=== PATIENT | female | born 1930 | race Caucasian/White ===

== ENCOUNTER 2016-12-15 23:47 | Inpatient (IN) | payer MEDICARE, OTHER ==
[2016-12-15] MEDS ORDERED: DILTIAZEM 5 MG/ML 5 ML VIAL IVP STA (23:58)
[2016-12-15] MEDS ORDERED: ASPIRIN 81 MG CHEW PO STA (23:58)
[2016-12-15] MEDS ORDERED: DILTIAZEM 125 MG in SODIUM CHLORIDE 0.9% 100 ML IV ONE (23:58)
--- NOTE | 2016-12-16 00:01 | ED ---
Chest Pain HPI - General Chief Complaint: Chest Pain Stated Complaint: Chest Pain Time Seen by Provider: 12/15/16 23:56 Source: patient Mode of arrival: EMS Limitations: no limitations - Related Data Home Medications Medication Instructions Recorded Confirmed Memantine HCl [Namenda] 5 mg PO DAILY 04/10/15 12/16/16 Tiotropium 18 Mcg/Puff [Spiriva] 1 puff INHALATION RT-DAILY 04/10/15 12/16/16 amLODIPine BESYLATE [Norvasc] 5 mg PO DAILY 04/10/15 12/16/16 Acetaminophen Tab [Tylenol] 650 mg PO Q4H PRN 04/11/15 12/16/16 Bisacodyl [Dulcolax] 10 mg RECTAL Q24H PRN 04/11/15 12/16/16 Magnesium Hydroxide [Milk of 7,200 mg PO DAILY PRN 04/11/15 12/16/16 Magnesia Concentrate] metFORMIN HCL [Glucophage] 500 mg PO BID 04/11/15 12/16/16 Caldesene Powder 81-15%(Talc-Zinc 1 applic TOPICAL DAILY PRN 07/23/15 12/16/16 Oxide) Clotrimazole/Betamethasone Dip 1 applic TOPICAL BID 07/23/15 12/16/16 [Lotrisone Cream] Levothyroxine Sodium [Synthroid] 175 mcg PO DAILY 07/23/15 12/16/16 Omeprazole [PriLOSEC] 40 mg PO DAILY 07/23/15 12/16/16 Esomeprazole Magnesium [NexIUM] 40 mg PO DAILY 12/16/16 12/16/16 Fluticasone Nasal [place] [Flonase 50 mcg NASAL DAILY 12/16/16 12/16/16 Nasal [place]] Furosemide [Lasix] 80 mg PO BID@0900,1600 12/16/16 12/16/16 INSULIN LISPRO (HumaLOG) [HumaLOG] 5 units SQ ACHS 12/16/16 12/16/16 Insulin Glargine [Lantus] 10 units SQ DAILY 12/16/16 12/16/16 Ipratropium-Albuterol Nebulize 0.5 - 2.5 mg .ROUTE DIRECTED 12/16/16 12/16/16 [Duoneb 0.5 mg-3 mg/3 ml Soln] Ranitidine HCl [Zantac] 150 mg PO BID 12/16/16 12/16/16 Spironolactone 50 mg PO DAILY 12/16/16 12/16/16 Previous Rx's Medication Instructions Recorded Budesonide-Formot 160-4.5 Mcg 2 puff INHALATION RT-BID puff 04/13/15 [Symbicort 160-4.5 Mcg Inhaler] Nitroglycerin Sl Tabs [Nitrostat] 0.4 mg SUBLINGUAL Q5M PRN #0 tab 04/13/15 guaiFENesin [Mucinex] 1,200 mg PO Q12HR tablet.er 04/13/15 ALPRAZolam [Xanax] 0.25 mg PO Q6H PRN #28 tab 07/29/15 Aspirin 81 mg PO DAILY #0 07/29/15 Azithromycin [Zithromax] 500 mg PO DAILY #3 tab 07/29/15 INSULIN LISPRO (humaLOG) [humaLOG 0 unit SQ ACHS vial 07/29/15 (formulary)] Ipratropium Nebulized [Atrovent 0.5 mg INHALATION RT-Q2H PRN #0 07/29/15 Nebulized] nebu Ipratropium Nebulized [Atrovent 0.5 mg INHALATION RT-QID nebu 07/29/15 Nebulized] Levalbuterol Nebulized (Conc) 1.25 mg INHALATION RT-Q2H PRN #0 ml 07/29/15 [Xopenex Nebulized (Conc)] Levalbuterol Nebulized (Conc) 1.25 mg INHALATION RT-QID ml 07/29/15 [Xopenex Nebulized (Conc)] Potassium Chloride ER [K-Dur 10] 10 meq PO BID tab.er.prt 07/29/15 QUEtiapine [SEROquel] 25 mg PO HS tab 07/29/15 traMADol HCl [Ultram] 100 mg PO Q6HR PRN #28 tab 07/29/15 Allergies Allergy/AdvReac Type Severity Reaction Status Date / Time adhesive Allergy Rash/Hives Verified 12/15/16 23:49 methylprednisolone sodium Allergy Confusion Verified 12/15/16 23:49 succinate [From Solu-Medrol] prednisone Allergy Confusion Verified 12/15/16 23:49 Rmubgnr-Tki-Mpf Reductase Allergy Confusion Verified 12/15/16 23:49 Inhibitor Review of Systems ROS Statement: Those systems with pertinent positive or pertinent negative responses have been documented in the HPI. ROS Other: All systems not noted in ROS Statement are negative. EKG Findings - EKG Comments: EKG Findings:: The 12-lead ECG shows what appears to be atrial fibrillation with a rapid ventricular response at 126 beats per minutes. The last EKG from July 2015 was in sinus rhythm. There is to be left axis deviation. There is nonspecific ST and T wave abnormality. The QRS duration is 88 ms, normal the QT see is 431 ms, also normal. - EKG Results: EKG: interpreted by ERMD EKG shows: atrial fibrillation (Rate approximately 126 bpm) - Blocks, Combs, Hypertrophy, ST Abn: QRS axis and voltage: left axis deviation (-30 to -90) Repolarization changes or abnormalities: nonspecific abnormality, ST segment, and/or T wave Past Medical History Past Medical History: Coronary Artery Disease (CAD), Heart Failure, COPD, Diabetes Mellitus, Deep Vein Thrombosis (DVT), GERD/Reflux, Hyperlipidemia, Hypertension, Osteoarthritis (OA), Pneumonia, Rheumatoid Arthritis (RA), Thyroid Disorder Additional Past Medical History / Comment(s): Pt was recently admitted to [facility] with acute low grade encephalitis likely viral, acute delirium, acute metabolic encephalitis. History of Any Multi-Drug Resistant Organisms: None Reported Past Surgical History: Appendectomy, Back Surgery, Joint Replacement, Orthopedic Surgery, Tonsillectomy Additional Past Surgical History / Comment(s): KNEE REPLACEMENT-LEFT, DENIA CATARACT, bilateral FOOT SURGERY, D&C, BRONCHOSCOPY, EVACUATION OF HEMATOMA RT FOOT 01/01/14, 3 back surgeries. Past Anesthesia/Blood Transfusion Reactions: No Reported Reaction, Postoperative Nausea & Vomiting (PONV) Additional Past Anesthesia/Blood Transfusion Reaction / Comment(s): Pt states she recieved blood with a back surgery without reaction. Past Psychological History: No Psychological Hx Reported Smoking Status: Former smoker Past Alcohol Use History: None Reported Past Drug Use History: None Reported - Past Family History Mother Family Medical History: Diabetes Mellitus, Myocardial Infarction ([place]) Father Family Medical History: Diabetes Mellitus General Exam Limitations: no limitations Course Vital Signs 12/15/16 12/15/16 12/16/16 23:49 23:54 00:30 Temperature 97.7 F Pulse Rate 141 H 125 H 114 H Pulse Rate [ 128 H Bezel Cutter ] Respiratory 20 20 20 Rate Blood Pressure 134/74 186/82 O2 Sat by Pulse 99 99 96 Oximetry 12/16/16 12/16/16 12/16/16 01:07 01:35 02:13 Temperature 98.2 F Pulse Rate 111 H 100 79 Pulse Rate [ Bezel Cutter ] Respiratory 18 24 20 Rate Blood Pressure 96/66 90/66 114/74 O2 Sat by Pulse 96 100 99 Oximetry 12/16/16 02:39 Temperature 98.1 F Pulse Rate 88 Pulse Rate [ Bezel Cutter ] Respiratory 18 Rate Blood Pressure 97/62 O2 Sat by Pulse 97 Oximetry Disposition Clinical Impression: Chest pain, Atrial fibrillation with RVR Disposition: ADMITTED IP TO THIS HOSP Condition: Poor Referrals: Binh Jackson MD [Primary Care Provider] - 1-2 days
[2016-12-16 00:26] LABS: Partial Thromboplastin Time 30.5 sec (22.0-30.0)
[2016-12-16] MEDS ORDERED: ONDANSETRON 4 MG/2 ML VIAL IVP STA (00:26)
[2016-12-16 00:28] LABS: Calcium 9.6 mg/dL (8.4-10.2); Magnesium 2.2 mg/dL (1.6-2.3); Potassium 5.5 mmol/L (3.5-5.1); Total Bilirubin 0.6 mg/dL (0.2-1.3); Total Protein 6.5 g/dL (6.3-8.2)
[2016-12-16 00:35] LABS: Anisocytosis Slight; Basophils % (A) 0 %; CH 28.9; CHCM 34.3; Eosinophils # (A) 0.1 k/uL (0-0.7); Eosinophils % (A) 1 %; HCT 38.1 % (34.0-46.0); HDW 2.98; HGB 13.1 gm/dL (11.4-16.0); Luc # (Auto) 0.18; Luc % (Auto) 2; Lymphocytes # (A) 0.9 k/uL (1.0-4.8); Lymphocytes % (A) 8 %; MCH 28.9 pg (25.0-35.0); MCHC 34.3 g/dL (31.0-37.0); Mean Platelet Volume 7.1; Monocytes # (A) 0.6 k/uL (0-1.0); Monocytes % (A) 6 %; Neutrophils # (A) 9.9 k/uL (1.3-7.7); Neutrophils % (A) 84 %; RBC 4.52 m/uL (3.80-5.40); RDW 17.3 % (11.5-15.5); WBC 11.7 k/uL (3.8-10.6); WBC (Perox) 12.02
[2016-12-16 00:37] LABS: MCV 84.3 fL (80.0-100.0)
--- NOTE | 2016-12-16 01:24 | XR ---
EXAM: XR Chest, 1 View CLINICAL HISTORY: Reason: chest pain TECHNIQUE: Frontal view of the chest. COMPARISON: Chest x-ray dated 08/05/2015. FINDINGS: Lungs: The heart is again noted to be enlarged, interval worsening since prior study. Bilateral perihilar infiltrates are noted, interval worsening since the prior study. Constellation of findings are suggestive of CHF. Pleural space: Small amount of fluid is seen within the minor fissure. No definitive evidence of significant pleural effusions. No pneumothorax. Heart: Cardiomegaly, interval worsening since prior study. Bones/joints: Osteopenia suggested. Degenerative changes involving both shoulders.. Vasculature: Atherosclerotic vascular calcifications involving the aorta. A mild/moderately tortuous descending thoracic aorta is seen. IMPRESSION: Interval worsening of CHF, as above.
[2016-12-16] MEDS ORDERED: SODIUM CHLORIDE 0.9% 1,000 ML IV STA (01:39)
[2016-12-16] MEDS ORDERED: NITROGLYCERIN SL TABS 0.4 MG TAB SUBLINGUAL PRN ×2 (02:42→02:45)
[2016-12-16] MEDS ORDERED: BISACODYL 10 MG SUPP RECTAL PRN (02:45)
[2016-12-16] MEDS ORDERED: MAGNESIUM HYDROXIDE 2,400 MG/10 ML CUP PO PRN (02:45)
[2016-12-16] MEDS ORDERED: traMADol 50 MG TAB PO PRN (02:45)
[2016-12-16] MEDS ORDERED: ALPRAZolam 0.25 MG TAB PO PRN (02:45)
[2016-12-16] MEDS ORDERED: ACETAMINOPHEN TAB 325 MG TAB PO PRN (02:45)
[2016-12-16] MEDS ORDERED: CALDESENE TOPICAL PRN (02:45)
[2016-12-16 04:31] LABS: Glucose,Whole Blood 123 mg/dL (75-99)
[2016-12-16] MEDS ORDERED: LEVOTHYROXINE 75 MCG TAB PO SCH (06:30)
[2016-12-16] MEDS ORDERED: LEVOTHYROXINE 100 MCG TAB PO SCH (06:30)
[2016-12-16] MEDS: metFORMIN 500 MG TAB PO SCH ×2 (07:09→17:08)
[2016-12-16] MEDS ORDERED: PANTOPRAZOLE 40 MG TABLET PO SCH (07:30)
[2016-12-16 07:56] LABS: Creatine Kinase <20 U/L (30-135)
[2016-12-16] MEDS ORDERED: TIOTROPIUM 18 MCG/PUFF INHALER INHALATION SCH (08:00)
[2016-12-16 08:08] LABS: Creatine Kinase MB 0.5 ng/mL (0.0-2.4); Troponin I <0.012 ng/mL (0.000-0.034)
[2016-12-16] MEDS: INSULIN LISPRO (humaLOG) 300 UNIT/3 ML VIAL SQ SCH ×4 (08:25→21:22)
[2016-12-16] MEDS: FAMOTIDINE 20 MG TAB PO SCH ×2 (08:36→22:11)
[2016-12-16] MEDS: CLOTRIMAZOLE/BETAMETH 1-0.05% CREAM 45 GM TUBE TOPICAL SCH ×3 (08:37→22:13)
[2016-12-16] MEDS: SYMBICORT 160-4.5 MCG INHALER INHALATION SCH ×2 (08:50→19:45)
[2016-12-16] MEDS: IPRATROPIUM 0.5 MG/2.5 ML NEBU INHALATION SCH ×4 (08:50→19:45)
[2016-12-16] MEDS: LEVALBUTEROL NEB (CONC) 1.25 MG/0.5 ML AMP INHALATION SCH ×4 (08:50→19:45)
[2016-12-16] MEDS ORDERED: HEPARIN SODIUM,PORCINE 5,000 UNIT/ML 1 ML VIAL SQ SCH (09:00)
[2016-12-16] MEDS ORDERED: amLODIPine 5 MG TAB PO SCH (09:00)
[2016-12-16] MEDS ORDERED: MEMANTINE 5 MG TAB PO SCH (09:00)
[2016-12-16] MEDS ORDERED: POTASSIUM CHLORIDE ER 10 MEQ TAB.ER.PRT PO SCH (09:00)
[2016-12-16] MEDS ORDERED: ASPIRIN 81 MG CHEW PO SCH (09:00)
[2016-12-16] MEDS ORDERED: NON-FORMULARY DRUG (Omeprazole [Prilosec] 40 MG) PO SCH (09:00)
[2016-12-16] MEDS ORDERED: AZITHROMYCIN 500 MG TAB PO SCH (09:00)
[2016-12-16] MEDS ORDERED: INSULIN GLARGINE 100 UNIT/ML 10 ML VIAL SQ SCH (09:00)
[2016-12-16] MEDS ORDERED: SPIRONOLACTONE 25 MG TAB PO SCH (09:00)
[2016-12-16] MEDS ORDERED: METOPROLOL TARTRATE 50 MG TAB PO SCH (10:45)
[2016-12-16] MEDS ORDERED: APIXABAN 2.5 MG TABLET PO SCH (10:45)
[2016-12-16 11:33] LABS: Glucose,Whole Blood 129 mg/dL (75-99)
[2016-12-16] MEDS: SODIUM CHLORIDE 0.9% 1,000 ML IV SCH ×2 (11:39→22:17)
[2016-12-16] MEDS ORDERED: QUEtiapine 25 MG TAB PO PRN (12:02)
[2016-12-16] MEDS ORDERED: guaiFENesin 600 MG TABLET.ER PO PRN (12:02)
--- NOTE | 2016-12-16 12:02 | P.HPIM ---
History of Present Illness H&P Date: 12/16/16 Chief Complaint: Right-sided chest pain This is a Pleasant 86-year-old white female, well-known to me from [facility] and previous hospital stays. She is a "DO NOT RESUSCITATE, do not hospitalize" patient from the skilled nursing. I was contacted multiple times regarding right-sided chest pain. She did receive several doses of TRAM, Xanax , and nitroglycerin that did not her pain. I asked them to Center emergency room for evaluation his pain. I was contacted later on indicating that she had some A. fib with RVR. Known history of congestive heart failure, diastolic dysfunction, and had episodic A. fib in the remote past. She was not on any blood thinners. They understand they started Cardizem drip to control her heart rate emergency room. She is now on the telemetry floor. This Morning, she indicates she had pain at the midepigastrium. It is resolved Review of Systems All systems: negative Past Medical History Past Medical History: Coronary Artery Disease (CAD), Heart Failure, COPD, Dementia (delerium with violent outbursts), Diabetes Mellitus, Deep Vein Thrombosis (DVT), GERD/Reflux, Hyperlipidemia, Hypertension, Memory Impairment ( demenia), Osteoarthritis (OA), Pneumonia, Respiratory Disorder (puolmonary Fibrosis or a fibrosis), Rheumatoid Arthritis (RA), Thyroid Disorder History of Any Multi-Drug Resistant Organisms: None Reported Past Surgical History: Appendectomy, Back Surgery, Joint Replacement, Orthopedic Surgery, Tonsillectomy Additional Past Surgical History / Comment(s): KNEE REPLACEMENT-LEFT, DENIA CATARACT, bilateral FOOT SURGERY, D&C, BRONCHOSCOPY, EVACUATION OF HEMATOMA RT FOOT 01/01/14, 3 back surgeries. Past Anesthesia/Blood Transfusion Reactions: No Reported Reaction, Postoperative Nausea & Vomiting (PONV) Additional Past Anesthesia/Blood Transfusion Reaction / Comment(s): Pt states she recieved blood with a back surgery without reaction. Past Psychological History: No Psychological Hx Reported Additional Psychological History / Comment(s): Pt resides at [facility]. She is assisted to a wheelchair. She feeds herself. She needs assistance with all other ADLs. She has dementia and occasionally confused. She has weakness and gait dysfunction. Smoking Status: Never smoker - Past Family History Mother Family Medical History: Diabetes Mellitus, Myocardial Infarction ([place]) Father Family Medical History: Diabetes Mellitus Medications and Allergies Home Medications Medication Instructions Recorded Confirmed Type Memantine HCl [Namenda] 5 mg PO DAILY 04/10/15 12/16/16 History Tiotropium 18 Mcg/Puff [Spiriva] 1 puff INHALATION RT-DAILY 04/10/15 12/16/16 History amLODIPine BESYLATE [Norvasc] 5 mg PO DAILY 04/10/15 12/16/16 History Acetaminophen Tab [Tylenol] 650 mg PO Q4H PRN 04/11/15 12/16/16 History Bisacodyl [Dulcolax] 10 mg RECTAL Q24H PRN 04/11/15 12/16/16 History Magnesium Hydroxide [Milk of 2,400 mg PO DAILY PRN 04/11/15 12/16/16 History Magnesia Concentrate] metFORMIN HCL [Glucophage] 500 mg PO BID 04/11/15 12/16/16 History Caldesene Powder 81-15%(Talc-Zinc 1 applic TOPICAL DAILY PRN 07/23/15 12/16/16 History Oxide) Clotrimazole/Betamethasone Dip 1 applic TOPICAL BID 07/23/15 12/16/16 History [Lotrisone Cream] Aspirin 81 mg PO DAILY 12/16/16 12/16/16 History Esomeprazole Magnesium [NexIUM] 40 mg PO DAILY 12/16/16 12/16/16 History Fluticasone Nasal [place] [Flonase 1 - 2 spray EA NOSTRIL DAILY PRN 12/16/1612/16 History Nasal [place]] Furosemide [Lasix] 80 mg PO DAILY 12/16/16 12/16/16 History INSULIN LISPRO (humaLOG) [humaLOG See Protocol SQ ACHS 12/16/16 12/16/16 History (formulary)] Insulin Glargine [Lantus] 10 units SQ DAILY 12/16/16 12/16/16 History Ipratropium-Albuterol Nebulize 3 ml INHALATION RT-Q4H PRN 12/16/16 12/16/16 History [Duoneb 0.5 mg-3 mg/3 ml Soln] Ketoconazole 2% Shampoo [Nizoral] 1 applic TOPICAL WEEKLY 12/16/16 12/16/16 History Levothyroxine Sodium [Synthroid] 175 mcg PO DAILY 12/16/16 12/16/16 History QUEtiapine [SEROquel] 12.5 - 25 mg PO HS PRN 12/16/16 12/16/16 History Ranitidine HCl [Zantac] 150 mg PO BID 12/16/16 12/16/16 History Spironolactone 50 mg PO DAILY 12/16/16 12/16/16 History guaiFENesin [Mucinex] 1,200 mg PO Q12HR PRN 12/16/16 12/16/16 History traMADol HCL [Ultram] 50 mg PO Q4HR PRN 12/16/16 12/16/16 History Allergies Allergy/AdvReac Type Severity Reaction Status Date / Time adhesive Allergy Rash/Hives Verified 12/16/16 08:38 methylprednisolone sodium Allergy Confusion Verified 12/16/16 08:38 succinate [From Solu-Medrol] prednisone Allergy Confusion Verified 12/16/16 08:38 Cxvlkdx-Xlo-Mhs Reductase Allergy Confusion Verified 12/16/16 08:38 Inhibitor Physical Exam Vitals: Vital Signs Temp Pulse Pulse Pulse Resp BP BP 12/16/16 11:24 97.7 F 84 20 85/49 12/16/16 08:00 96.0 F L 76 20 115/61 12/16/16 07:27 66 18 12/16/16 04:00 98.3 F 66 18 99/72 12/16/16 03:37 79 20 99/57 12/16/16 02:39 98.1 F 88 18 97/62 12/16/16 02:13 79 20 114/74 12/16/16 01:35 100 24 90/66 12/16/16 01:07 98.2 F 111 H 18 96/66 12/16/16 00:30 114 H 20 186/82 12/15/16 23:54 125 H 128 H 20 12/15/16 23:49 97.7 F 141 H 20 134/74 Pulse Ox 12/16/16 11:24 99 12/16/16 08:00 94 L 12/16/16 07:27 12/16/16 04:00 100 12/16/16 03:37 100 12/16/16 02:39 97 12/16/16 02:13 99 12/16/16 01:35 100 12/16/16 01:07 96 12/16/16 00:30 96 12/15/16 23:54 99 12/15/16 23:49 99 Intake and Output 12/15/16 12/16/16 12/16/16 22:59 06:59 14:59 Intake Total 100 120 Balance 100 120 Intake: IV 100 0.9 80 Diltiazem 125 mg In 20 Sodium Chloride 0.9% 100 ml @ 5 MG/HR 5 mls/hr IV .Q24H ONE Rx#:[id number] Oral 120 Other: Voiding Method Diaper Incontinent # Voids 1 Weight 88.5 kg GENERAL: Elderly, frail, profoundly deaf, pleasant female HEAD: Atraumatic, normocephalic. EYES: Pupils equal round and reactive to light, extraocular movements intact, sclera anicteric, conjunctiva are normal. ENT:nares patent, oropharynx clear without exudates. Moist mucous membranes. NECK: Normal range of motion, supple without lymphadenopathy or JVD, no thyromegaly LUNGS: Breath sounds coarse with bilateral rhonchi due to her fibrosis, there is mild right basilar crackles auscultated today. HEART: Regular rate and rhythm without murmurs, rubs or gallops.S1S2 Normal ABDOMEN: Soft, normoactive bowel sounds. No guarding, no rebound. No masses appreciated. His midepigastric tenderness to palpation EXTREMITIES: Normal range of motion, no pitting, minimal edema. No clubbing or cyanosis. NEUROLOGICAL: Cranial nerves II through XII grossly intact. Normal speech, PSYCH: Normal mood, normal affect. No active hallucinations. Awake alert and oriented 2 SKIN: Warm, Dry, normal turgor, no rashes or lesions noted. Results CBC & Chem 7: 12/16/16 00:01 12/16/16 00:01 Labs: Abnormal Lab Results - Last 24 Hours (Table) 12/16/16 12/16/16 12/16/16 Range/Units 00:01 00:01 00:01 WBC 11.7 H (3.8-10.6) k/uL RDW 17.3 H (11.5-15.5) % Neutrophils # 9.9 H (1.3-7.7) k/uL Lymphocytes # 0.9 L (1.0-4.8) k/uL APTT 30.5 H (22.0-30.0) sec Sodium 127 L (137-145) mmol/L Potassium 5.5 H (3.5-5.1) mmol/L Chloride 90 L (98-107) mmol/L BUN 48 H (7-17) mg/dL Creatinine 1.20 H (0.52-1.04) mg/dL Glucose 168 H (74-99) mg/dL POC Glucose (mg/dL) (75-99) mg/dL AST 13 L (14-36) U/L Total Creatine Kinase (30-135) U/L 12/16/16 12/16/16 12/16/16 Range/Units 04:12 05:50 11:31 WBC (3.8-10.6) k/uL RDW (11.5-15.5) % Neutrophils # (1.3-7.7) k/uL Lymphocytes # (1.0-4.8) k/uL APTT (22.0-30.0) sec Sodium (137-145) mmol/L Potassium (3.5-5.1) mmol/L Chloride (98-107) mmol/L BUN (7-17) mg/dL Creatinine (0.52-1.04) mg/dL Glucose (74-99) mg/dL POC Glucose (mg/dL) 123 H 129 H (75-99) mg/dL AST (14-36) U/L Total Creatine Kinase <20 L (30-135) U/L Thrombosis Risk Factor Assmnt - Choose All That Apply Each Risk Factor Represents 3 Points: Age 75 years or older, History of DVT/PE Thrombosis Risk Factor Assessment Total Risk Factor Score: 6 Thrombosis Risk Factor Assessment Level: High Risk Assessment and Plan Plan: AFIB With RVR: Due to her hypotension, we'll discontinue the heparin drip. I recall a previous history of this, but cannot find it documented in the hospital record, it may have happened while she was at [facility]. COPD: l, DuoNeb updrafts, Symbicort, and continue her Lasix. Pulmonary fibrosis acute exacerbation of diastolic this heart failure: Lasix 40 mg IV times one then return orals Type 2 diabetes: NovoLog scale. Lantus until her diet improved Hypothyroidism: She'll remain on Synthroid Dementia: She'll continue on her Namenda. Episodic delirium: Karl well Hypertension: She'll continue on her medications of amlodipine. Osteoarthritis: We'll order when necessary Tylenol for her. DVT prophylaxis: Currently on Elequis 2.5 twice a day GI prophylaxis: Pepcid 20 mg twice a day. Hyperkalemia: We'll recheck her potassium. Hyponatremia: Weight on her recheck a BMP Due to her CODE STATUS and my knowledge of the the patient, I will plan on her being back to [facility] later today or tomorrow.
[2016-12-16] MEDS ORDERED: FUROSEMIDE 80 MG TAB PO SCH (12:15)
[2016-12-16] MEDS ORDERED: NON-FORMULARY DRUG (Levothyroxine Sodium [Synthroid] 175 MCG) PO SCH (12:15)
[2016-12-16 12:22] LABS: Anisocytosis Slight; Basophils % (A) 0 %; CH 28.5; CHCM 32.8; Eosinophils # (A) 0.1 k/uL (0-0.7); Eosinophils % (A) 2 %; HCT 35.3 % (34.0-46.0); HDW 2.92; HGB 11.8 gm/dL (11.4-16.0); Luc # (Auto) 0.15; Luc % (Auto) 2; Lymphocytes # (A) 1.2 k/uL (1.0-4.8); Lymphocytes % (A) 15 %; MCH 29.1 pg (25.0-35.0); MCHC 33.4 g/dL (31.0-37.0); MCV 87.2 fL (80.0-100.0); Mean Platelet Volume 7.7; Monocytes # (A) 0.4 k/uL (0-1.0); Monocytes % (A) 5 %; Neutrophils # (A) 6.3 k/uL (1.3-7.7); Neutrophils % (A) 76 %; RBC 4.04 m/uL (3.80-5.40); RDW 17.3 % (11.5-15.5); WBC 8.3 k/uL (3.8-10.6); WBC (Perox) 8.41
[2016-12-16 12:42] LABS: Creatine Kinase <20 U/L (30-135)
[2016-12-16 12:54] LABS: Creatine Kinase MB 0.5 ng/mL (0.0-2.4); Troponin I <0.012 ng/mL (0.000-0.034)
[2016-12-16 14:10] LABS: Calcium 8.9 mg/dL (8.4-10.2); Potassium 5.8 mmol/L (3.5-5.1)
[2016-12-16 14:35] VITALS: RESP 18
[2016-12-16] MEDS ORDERED: SODIUM POLYSTYRENE SULFONATE 15 GM/60 ML BOTTLE PO STA (15:47)
[2016-12-16 16:55] LABS: Glucose,Whole Blood 129 mg/dL (75-99)
[2016-12-16 20:35] LABS: Glucose,Whole Blood 140 mg/dL (75-99)
[2016-12-16] MEDS ORDERED: QUEtiapine 25 MG TAB PO SCH (21:00)
[2016-12-16 22:09] VITALS: TEMP 98.4
[2016-12-16 22:30] VITALS: BP 108/62; PULSE 110
== END 2016-12-16 22:38 | DRG 309 ==
LOC: EEVIPCON 23:47 → EC 23:47 → 6SEL 12-16 02:43
PROVIDERS: ADMIT Family Medicine; ATTEND Family Medicine
DX: I48.91 Unspecified atrial fibrillation (principal); F05 Delirium due to known physiological condition; I11.0 Hypertensive heart disease with heart failure; I95.9 Hypotension, unspecified; F03.90 Unspecified dementia, unspecified severity, without behavioral disturbance, psychotic disturbance, mood disturbance, and anxiety; I50.32 Chronic diastolic (congestive) heart failure; E87.1 Hypo-osmolality and hyponatremia; J84.10 Pulmonary fibrosis, unspecified; E87.5 Hyperkalemia; J44.9 Chronic obstructive pulmonary disease, unspecified; Z66 Do not resuscitate; I25.10 Atherosclerotic heart disease of native coronary artery without angina pectoris; E78.5 Hyperlipidemia, unspecified; R07.9 Chest pain, unspecified; R53.1 Weakness; E11.9 Type 2 diabetes mellitus without complications; R26.9 Unspecified abnormalities of gait and mobility; M19.90 Unspecified osteoarthritis, unspecified site; M06.9 Rheumatoid arthritis, unspecified; R32 Unspecified urinary incontinence; E03.9 Hypothyroidism, unspecified; K21.9 Gastro-esophageal reflux disease without esophagitis; H91.90 Unspecified hearing loss, unspecified ear; R10.13 Epigastric pain; Z79.82 Long term (current) use of aspirin; Z79.51 Long term (current) use of inhaled steroids; Z87.891 Personal history of nicotine dependence; Z79.899 Other long term (current) drug therapy; Z83.3 Family history of diabetes mellitus; Z82.49 Family history of ischemic heart disease and other diseases of the circulatory system; Z86.61 Personal history of infections of the central nervous system; Z79.4 Long term (current) use of insulin; Z87.01 Personal history of pneumonia (recurrent); Z86.718 Personal history of other venous thrombosis and embolism; Z88.8 Allergy status to other drugs, medicaments and biological substances; Z91.048 Other nonmedicinal substance allergy status; Z90.49 Acquired absence of other specified parts of digestive tract; Z98.42 Cataract extraction status, left eye; Z98.41 Cataract extraction status, right eye; Z96.652 Presence of left artificial knee joint
CPT/HCPCS: 36415; 71010; 80048; 80053; 82550; 82553; 83735; 83880; 84132; 84484; 85025; 85610; 85730; 93005; 94640; 96374; 96375; 99285

== ENCOUNTER 2017-01-17 03:46 | Emergency (ER) | payer BC, OTHER ==
[2017-01-17 04:00] VITALS: TEMP 96.8
[2017-01-17] MEDS ORDERED: ONDANSETRON 4 MG/2 ML VIAL IVP STA ×2 (04:06→07:23)
[2017-01-17] MEDS ORDERED: MORPHINE SULFATE 4 MG/ML SYRINGE IV STA (04:06)
[2017-01-17 04:20] LABS: Anisocytosis Slight; Basophils # (A) 0.1 k/uL (0-0.2); Basophils % (A) 1 %; CH 30.4; CHCM 35.3; Eosinophils # (A) 0.1 k/uL (0-0.7); Eosinophils % (A) 2 %; HCT 39.5 % (34.0-46.0); HDW 3.06; HGB 13.4 gm/dL (11.4-16.0); Luc # (Auto) 0.16; Luc % (Auto) 2; Lymphocytes # (A) 1.2 k/uL (1.0-4.8); Lymphocytes % (A) 14 %; MCH 29.3 pg (25.0-35.0); MCV 86.4 fL (80.0-100.0); Mean Platelet Volume 7.3; Monocytes # (A) 0.5 k/uL (0-1.0); Monocytes % (A) 7 %; Neutrophils % (A) 75 %; RBC 4.57 m/uL (3.80-5.40); RDW 17.9 % (11.5-15.5); WBC (Perox) 7.71
[2017-01-17 04:33] LABS: ALT 28 U/L (9-52); AST 14 U/L (14-36); Alkaline Phosphatase 82 U/L (38-126); Amylase <30 U/L (30-110); Anion Gap 15 mmol/L; Blood Urea Nitrogen 49 mg/dL (7-17); Calcium 9.5 mg/dL (8.4-10.2); Carbon Dioxide 23 mmol/L (22-30); Chloride 88 mmol/L (98-107); Glucose 108 mg/dL (74-99); Non-African American GFR(MDRD) 47 (>60 ml/min/1.73 sqM); Partial Thromboplastin Time 31.7 sec (22.0-30.0); Potassium 4.8 mmol/L (3.5-5.1); Prothrombin Time 10.3 sec (9.0-12.0); Sodium 126 mmol/L (137-145); Total Bilirubin 0.7 mg/dL (0.2-1.3); Total Protein 6.4 g/dL (6.3-8.2)
[2017-01-17 04:50] LABS: Appearance,Urine Turbid (Clear); Bacteria,Urine Moderate /hpf; Bilirubin,Urine Negative (Negative); Glucose,Urine (UA) Negative (Negative); Ketones,Urine Negative (Negative); Leukocyte Esterase,Urine Large (Negative); Nitrite,Urine Negative (Negative); Particle Count 51491; Protein,Urine 2+ (Negative); UA Billing (MACRO vs. MICRO) MICRO; Urobilinogen,Urine <2.0 mg/dL (<2.0); WBC,Urine >182 /hpf (0-5)
[2017-01-17] MEDS ORDERED: RX INFO: IV CONTRAST WAS GIVEN 1 EACH MISC MISCELLANE PRN (05:04)
[2017-01-17] MEDS ORDERED: LEVOFLOXACIN 750MG-D5W PMX 750 MG in DEXTROSE/WATER 1 150ML.BAG IVPB STA (05:05)
--- NOTE | 2017-01-17 06:32 | CT ---
EXAM: CT Abdomen and Pelvis With Intravenous Contrast CLINICAL HISTORY: Reason: Pain TECHNIQUE: Axial computed tomography images of the abdomen and pelvis with intravenous contrast. CTDI is 62 mGy and DLP is 2401 6.70 mGy-cm. This CT exam was performed using one or more of the following dose reduction techniques: automated exposure control, adjustment of the mA and/or kV according to patient size, and/or use of iterative reconstruction technique. COMPARISON: None. FINDINGS: Lower thorax: Images of the lower chest demonstrate an enlarged heart. Severe atherosclerotic vascular calcifications are seen involving the coronary arteries. Geographic areas of ground-glass opacity are seen along with interlobular septal thickening raising concern for postcapillary pulmonary vascular congestion. Cannot definitively exclude the possibility of superimposed infection. The main pulmonary artery measures up to 3.2 cm, likely presenting pulmonary hypertension. ABDOMEN: Liver: A 0.3 cm rounded hypodensity seen within the left lobe of the liver, which is too small to characterize, but likely represents cysts. Gallbladder and bile ducts: The gallbladder is mildly distended, measuring up to 4.8 cm. There are no secondary signs of acute cholecystitis. No ductal dilation. Pancreas: Atrophic pancreas with multiple microcalcifications, likely sequela of chronic pancreatitis. No ductal dilation. Spleen: Unremarkable. No splenomegaly. Adrenals: Unremarkable. No mass. Kidneys and ureters: Bilateral atrophic kidneys are seen. No hydronephrosis. Stomach and bowel: Large stool ball is seen within the rectum. No definitive evidence of perirectal fatty infiltration or wall thickening to suggest stercoral colitis, however cannot definitively exclude the possibility of early stercoral colitis. Large amount of stool seen throughout the colon, likely represent constipation. Colonic diverticulosis is seen without evidence of acute diverticulitis. Appendix: No findings to suggest acute appendicitis. PELVIS: Bladder: Questionable mild wall thickening of the urinary bladder, which may represent cystitis. Reproductive: Unremarkable as visualized. ABDOMEN and PELVIS: Intraperitoneal space: Unremarkable. No free air. No significant fluid collection. Bones/joints: Moderate/severe multilevel degenerative changes seen throughout the visualized thoracolumbar spine. Osteopenia is suggested. No acute fracture. No dislocation. Soft tissues: Unremarkable. Vasculature: Moderate/severe atherosclerotic vascular calcifications along with mural thrombus seen involving the intra-abdominal aorta and its branches. Lymph nodes: Unremarkable. No enlarged lymph nodes. IMPRESSION: 1. Geographic areas of ground-glass opacity are seen along with interlobular septal thickening raising concern for postcapillary pulmonary vascular congestion. Cannot definitively exclude the possibility of superimposed infection. Clinical correlation. 2. The gallbladder is mildly distended, measuring up to 4.8 cm. No secondary signs of acute cholecystitis. If there is further clinical concern, right upper quadrant ultrasound is recommended for further evaluation. 3. Constipation. Large stool ball within the rectum. No definitive evidence of perirectal fatty infiltration or wall thickening to suggest stercoral colitis, however cannot definitively exclude the possibility of early stercoral colitis. Disimpaction is recommended. 4. Questionable mild wall thickening of the urinary bladder, which may represent cystitis. Clinical correlation recommended. 5. Other findings, as above.
--- NOTE | 2017-01-17 08:38 | ED ---
Medical Decision Making - Medical Decision Making Dr. Lindsay signed this patient out at 8:15 AM. - Lab Data Result diagrams: 01/17/17 03:57 01/17/17 03:57 Lab Results 01/17/17 01/17/17 01/17/17 Range/Units 03:57 03:57 03:57 WBC 8.0 (3.8-10.6) k/uL RBC 4.57 (3.80-5.40) m/uL Hgb 13.4 (11.4-16.0) gm/dL Hct 39.5 (34.0-46.0) % MCV 86.4 (80.0-100.0) fL MCH 29.3 (25.0-35.0) pg MCHC 34.0 (31.0-37.0) g/dL RDW 17.9 H (11.5-15.5) % Plt Count 297 (150-450) k/uL Neutrophils % 75 % Lymphocytes % 14 % Monocytes % 7 % Eosinophils % 2 % Basophils % 1 % Neutrophils # 6.0 (1.3-7.7) k/uL Lymphocytes # 1.2 (1.0-4.8) k/uL Monocytes # 0.5 (0-1.0) k/uL Eosinophils # 0.1 (0-0.7) k/uL Basophils # 0.1 (0-0.2) k/uL Anisocytosis Slight PT 10.3 (9.0-12.0) sec INR 1.0 (<1.2) APTT 31.7 H (22.0-30.0) sec Sodium 126 L (137-145) mmol/L Potassium 4.8 (3.5-5.1) mmol/L Chloride 88 L (98-107) mmol/L Carbon Dioxide 23 (22-30) mmol/L Anion Gap 15 mmol/L BUN 49 H (7-17) mg/dL Creatinine 1.10 H (0.52-1.04) mg/dL Est GFR (MDRD) Af Amer 57 (>60 ml/min/1.73 sqM) Est GFR (MDRD) Non-Af 47 (>60 ml/min/1.73 sqM) Glucose 108 H (74-99) mg/dL Plasma Lactic Acid Gokul (0.7-2.0) mmol/L Calcium 9.5 (8.4-10.2) mg/dL Total Bilirubin 0.7 (0.2-1.3) mg/dL AST 14 (14-36) U/L ALT 28 (9-52) U/L Alkaline Phosphatase 82 (38-126) U/L Troponin I (0.000-0.034) ng/mL Total Protein 6.4 (6.3-8.2) g/dL Albumin 3.8 (3.5-5.0) g/dL Amylase <30 L (30-110) U/L Lipase 11 L (23-300) U/L Urine Color Urine Appearance (Clear) Urine pH (5.0-8.0) Ur Specific Syl[place] (1.001-1.035) Urine Protein (Negative) Urine Glucose (UA) (Negative) Urine Ketones (Negative) Urine Blood (Negative) Urine Nitrite (Negative) Urine Bilirubin (Negative) Urine Urobilinogen (<2.0) mg/dL Ur Leukocyte Esterase (Negative) Urine WBC (0-5) /hpf Urine WBC Clumps (None) /hpf Urine Bacteria (None) /hpf 01/17/17 01/17/17 01/17/17 Range/Units 03:57 03:57 04:33 WBC (3.8-10.6) k/uL RBC (3.80-5.40) m/uL Hgb (11.4-16.0) gm/dL Hct (34.0-46.0) % MCV (80.0-100.0) fL MCH (25.0-35.0) pg MCHC (31.0-37.0) g/dL RDW (11.5-15.5) % Plt Count (150-450) k/uL Neutrophils % % Lymphocytes % % Monocytes % % Eosinophils % % Basophils % % Neutrophils # (1.3-7.7) k/uL Lymphocytes # (1.0-4.8) k/uL Monocytes # (0-1.0) k/uL Eosinophils # (0-0.7) k/uL Basophils # (0-0.2) k/uL Anisocytosis PT (9.0-12.0) sec INR (<1.2) APTT (22.0-30.0) sec Sodium (137-145) mmol/L Potassium (3.5-5.1) mmol/L Chloride (98-107) mmol/L Carbon Dioxide (22-30) mmol/L Anion Gap mmol/L BUN (7-17) mg/dL Creatinine (0.52-1.04) mg/dL Est GFR (MDRD) Af Amer (>60 ml/min/1.73 sqM) Est GFR (MDRD) Non-Af (>60 ml/min/1.73 sqM) Glucose (74-99) mg/dL Plasma Lactic Acid Gokul 1.4 (0.7-2.0) mmol/L Calcium (8.4-10.2) mg/dL Total Bilirubin (0.2-1.3) mg/dL AST (14-36) U/L ALT (9-52) U/L Alkaline Phosphatase (38-126) U/L Troponin I <0.012 (0.000-0.034) ng/mL Total Protein (6.3-8.2) g/dL Albumin (3.5-5.0) g/dL Amylase (30-110) U/L Lipase (23-300) U/L Urine Color Yellow Urine Appearance Turbid H (Clear) Urine pH 6.0 (5.0-8.0) Ur Specific [place] 1.010 (1.001-1.035) Urine Protein 2+ H (Negative) Urine Glucose (UA) Negative (Negative) Urine Ketones Negative (Negative) Urine Blood Moderate H (Negative) Urine Nitrite Negative (Negative) Urine Bilirubin Negative (Negative) Urine Urobilinogen <2.0 (<2.0) mg/dL Ur Leukocyte Esterase Large H (Negative) Urine WBC >182 H (0-5) /hpf Urine WBC Clumps Many H (None) /hpf Urine Bacteria Moderate H (None) /hpf Disposition Clinical Impression: Constipation, Urinary tract infection Disposition: HOME SELF-CARE Prescriptions: Levofloxacin [Levaquin] 750 mg PO DAILY #10 tab Referrals: Binh Jackson MD [Primary Care Provider] - 1-2 days Time of Disposition: 09:59
[2017-01-17] MEDS ORDERED: MAGNESIUM CITRATE 296 ML BOTTLE PO ONE (09:50)
[2017-01-17 10:21] VITALS: BP 104/63; PULSE 120; RESP 19
--- NOTE | 2017-02-15 07:55 | ED ---
Abdominal Pain HPI - General Chief Complaint: Abdominal Pain Stated Complaint: ABD Pain Time Seen by Provider: 01/17/17 03:54 Source: EMS Mode of arrival: EMS Limitations: physical limitation - History of Present Illness Initial Comments: This patient is an 86-year-old woman who is complaining of severe, intermittent , crampy abdominal pain and states she has not been able to have bowel movements she believes for over a week. Patient denies fever or chills, any chest symptoms, any radiation to the legs or back pain. MD Complaint: abdominal pain -: week(s) Location: diffuse Radiation: none Migration to: no migration Severity: moderate Quality: cramping Consistency: intermittent Improves With: nothing Worsens With: nothing Associated Symptoms: denies other symptoms - Related Data Home Medications Medication Instructions Recorded Confirmed Memantine HCl [Namenda] 5 mg PO DAILY 04/10/15 12/16/16 Tiotropium 18 Mcg/Puff [Spiriva] 1 puff INHALATION RT-DAILY 04/10/15 12/16/16 amLODIPine BESYLATE [Norvasc] 5 mg PO DAILY 04/10/15 12/16/16 Acetaminophen Tab [Tylenol] 650 mg PO Q4H PRN 04/11/15 12/16/16 Bisacodyl [Dulcolax] 10 mg RECTAL Q24H PRN 04/11/15 12/16/16 Magnesium Hydroxide [Milk of 2,400 mg PO DAILY PRN 04/11/15 12/16/16 Magnesia Concentrate] metFORMIN HCL [Glucophage] 500 mg PO BID 04/11/15 12/16/16 Caldesene Powder 81-15%(Talc-Zinc 1 applic TOPICAL DAILY PRN 07/23/15 12/16/16 Oxide) Clotrimazole/Betamethasone Dip 1 applic TOPICAL BID 07/23/15 12/16/16 [Lotrisone Cream] Aspirin 81 mg PO DAILY 12/16/16 12/16/16 Esomeprazole Magnesium [NexIUM] 40 mg PO DAILY 12/16/16 12/16/16 Fluticasone Nasal [place] [Flonase 1 - 2 spray EA NOSTRIL DAILY PRN 12/16/1612/16 Nasal [place]] Furosemide [Lasix] 80 mg PO DAILY 12/16/16 12/16/16 INSULIN LISPRO (humaLOG) [humaLOG See Protocol SQ ACHS 12/16/16 12/16/16 (formulary)] Insulin Glargine [Lantus] 10 units SQ DAILY 12/16/16 12/16/16 Ipratropium-Albuterol Nebulize 3 ml INHALATION RT-Q4H PRN 12/16/16 12/16/16 [Duoneb 0.5 mg-3 mg/3 ml Soln] Ketoconazole 2% Shampoo [Nizoral] 1 applic TOPICAL WEEKLY 12/16/16 12/16/16 Levothyroxine Sodium [Synthroid] 175 mcg PO DAILY 12/16/16 12/16/16 QUEtiapine [SEROquel] 12.5 - 25 mg PO HS PRN 12/16/16 12/16/16 Ranitidine HCl [Zantac] 150 mg PO BID 12/16/16 12/16/16 Spironolactone 50 mg PO DAILY 12/16/16 12/16/16 guaiFENesin [Mucinex] 1,200 mg PO Q12HR PRN 12/16/16 12/16/16 traMADol HCL [Ultram] 50 mg PO Q4HR PRN 12/16/16 12/16/16 Previous Rx's Medication Instructions Recorded Budesonide-Formot 160-4.5 Mcg 2 puff INHALATION RT-BID puff 04/13/15 [Symbicort 160-4.5 Mcg Inhaler] Nitroglycerin Sl Tabs [Nitrostat] 0.4 mg SUBLINGUAL Q5M PRN #0 tab 04/13/15 ALPRAZolam [Xanax] 0.25 mg PO Q6H PRN #28 tab 07/29/15 Potassium Chloride ER [K-Dur 10] 10 meq PO BID tab.er.prt 07/29/15 INSULIN LISPRO (humaLOG) [humaLOG 5 unit SQ ACHS vial 12/16/16 (formulary)] Ipratropium Nebulized [Atrovent 0.5 mg INHALATION RT-QID neb 12/16/16 Nebulized] Nitroglycerin Sl Tabs [Nitrostat] 0.4 mg SUBLINGUAL Q5M PRN tab 12/16/16 QUEtiapine [SEROquel] 25 mg PO HS tab 12/16/16 traMADol HCl [Ultram] 100 mg PO Q6HR PRN tab 12/16/16 Levofloxacin [Levaquin] 750 mg PO DAILY #10 tab 01/17/17 Allergies Allergy/AdvReac Type Severity Reaction Status Date / Time adhesive Allergy Rash/Hives Verified 12/16/16 08:38 methylprednisolone sodium Allergy Confusion Verified 12/16/16 08:38 succinate [From Solu-Medrol] prednisone Allergy Confusion Verified 12/16/16 08:38 Ylijjyk-Dmj-Hsb Reductase Allergy Confusion Verified 12/16/16 08:38 Inhibitor Review of Systems ROS Statement: Those systems with pertinent positive or pertinent negative responses have been documented in the HPI. ROS Other: All systems not noted in ROS Statement are negative. Constitutional: Denies: fever, chills Respiratory: Denies: cough, dyspnea Cardiovascular: Denies: chest pain, edema Gastrointestinal: Reports: abdominal pain, nausea, constipation. Denies: vomiting, diarrhea, melena, hematochezia Genitourinary: Denies: dysuria, hematuria Musculoskeletal: Denies: back pain Skin: Denies: rash Neurological: Denies: headache, weakness, numbness Past Medical History Past Medical History: Coronary Artery Disease (CAD), Heart Failure, COPD, Dementia, Diabetes Mellitus, Deep Vein Thrombosis (DVT), GERD/Reflux, Hyperlipidemia, Hypertension, Memory Impairment, Osteoarthritis (OA), Pneumonia , Respiratory Disorder, Rheumatoid Arthritis (RA), Thyroid Disorder Additional Past Medical History / Comment(s): Pt was recently admitted to [facility] with acute low grade encephalitis likely viral, acute delirium, acute metabolic encephalitis. History of Any Multi-Drug Resistant Organisms: None Reported Past Surgical History: Appendectomy, Back Surgery, Joint Replacement, Orthopedic Surgery, Tonsillectomy Additional Past Surgical History / Comment(s): KNEE REPLACEMENT-LEFT, DENIA CATARACT, bilateral FOOT SURGERY, D&C, BRONCHOSCOPY, EVACUATION OF HEMATOMA RT FOOT 01/01/14, 3 back surgeries. Past Anesthesia/Blood Transfusion Reactions: No Reported Reaction, Postoperative Nausea & Vomiting (PONV) Additional Past Anesthesia/Blood Transfusion Reaction / Comment(s): Pt states she recieved blood with a back surgery without reaction. Past Psychological History: No Psychological Hx Reported Smoking Status: Never smoker Past Alcohol Use History: None Reported Past Drug Use History: None Reported - Past Family History Mother Family Medical History: Diabetes Mellitus, Myocardial Infarction ([place]) Father Family Medical History: Diabetes Mellitus General Exam Limitations: physical limitation General appearance: alert, in no apparent distress Head exam: Present: atraumatic Eye exam: Present: normal appearance. Absent: scleral icterus, conjunctival injection Respiratory exam: Present: normal lung sounds bilaterally. Absent: respiratory distress, wheezes, rales, rhonchi, stridor Cardiovascular Exam: Present: regular rate, normal rhythm, normal heart sounds. Absent: systolic murmur, diastolic murmur, rubs, gallop GI/Abdominal exam: Present: soft. Absent: distended, tenderness, guarding, rebound, rigid, mass Extremities exam: Present: normal inspection, normal capillary refill. Absent: pedal edema, calf tenderness Back exam: Present: normal inspection. Absent: CVA tenderness (R), CVA tenderness (L) Skin exam: Present: warm, dry, intact, normal color. Absent: rash Course Vital Signs 01/17/17 01/17/17 01/17/17 03:48 06:28 07:31 Temperature 96.8 F L Pulse Rate 77 109 H 101 H Respiratory 18 16 20 Rate Blood Pressure 125/58 100/63 122/62 O2 Sat by Pulse 94 L 97 96 Oximetry 01/17/17 01/17/17 01/17/17 08:30 09:30 10:20 Temperature Pulse Rate 82 95 120 H Respiratory 20 20 19 Rate Blood Pressure 103/56 100/55 104/63 O2 Sat by Pulse 99 98 96 Oximetry Medical Decision Making - Medical Decision Making Patient is an 86-year-old woman in with abdominal pain, history and physical exam consistent with constipation. CT does not reveal other acute abdominal abnormality. Patient signed out pending the results of enema. - Lab Data Result diagrams: 01/17/17 03:57 01/17/17 03:57 Lab Results 01/17/17 01/17/17 01/17/17 Range/Units 03:57 03:57 03:57 WBC 8.0 (3.8-10.6) k/uL RBC 4.57 (3.80-5.40) m/uL Hgb 13.4 (11.4-16.0) gm/dL Hct 39.5 (34.0-46.0) % MCV 86.4 (80.0-100.0) fL MCH 29.3 (25.0-35.0) pg MCHC 34.0 (31.0-37.0) g/dL RDW 17.9 H (11.5-15.5) % Plt Count 297 (150-450) k/uL Neutrophils % 75 % Lymphocytes % 14 % Monocytes % 7 % Eosinophils % 2 % Basophils % 1 % Neutrophils # 6.0 (1.3-7.7) k/uL Lymphocytes # 1.2 (1.0-4.8) k/uL Monocytes # 0.5 (0-1.0) k/uL Eosinophils # 0.1 (0-0.7) k/uL Basophils # 0.1 (0-0.2) k/uL Anisocytosis Slight PT 10.3 (9.0-12.0) sec INR 1.0 (<1.2) APTT 31.7 H (22.0-30.0) sec Sodium 126 L (137-145) mmol/L Potassium 4.8 (3.5-5.1) mmol/L Chloride 88 L (98-107) mmol/L Carbon Dioxide 23 (22-30) mmol/L Anion Gap 15 mmol/L BUN 49 H (7-17) mg/dL Creatinine 1.10 H (0.52-1.04) mg/dL Est GFR (MDRD) Af Amer 57 (>60 ml/min/1.73 sqM) Est GFR (MDRD) Non-Af 47 (>60 ml/min/1.73 sqM) Glucose 108 H (74-99) mg/dL Plasma Lactic Acid Gokul (0.7-2.0) mmol/L Calcium 9.5 (8.4-10.2) mg/dL Total Bilirubin 0.7 (0.2-1.3) mg/dL AST 14 (14-36) U/L ALT 28 (9-52) U/L Alkaline Phosphatase 82 (38-126) U/L Troponin I (0.000-0.034) ng/mL Total Protein 6.4 (6.3-8.2) g/dL Albumin 3.8 (3.5-5.0) g/dL Amylase <30 L (30-110) U/L Lipase 11 L (23-300) U/L Urine Color Urine Appearance (Clear) Urine pH (5.0-8.0) Ur Specific Clare (1.001-1.035) Urine Protein (Negative) Urine Glucose (UA) (Negative) Urine Ketones (Negative) Urine Blood (Negative) Urine Nitrite (Negative) Urine Bilirubin (Negative) Urine Urobilinogen (<2.0) mg/dL Ur Leukocyte Esterase (Negative) Urine WBC (0-5) /hpf Urine WBC Clumps (None) /hpf Urine Bacteria (None) /hpf 01/17/17 01/17/17 01/17/17 Range/Units 03:57 03:57 04:33 WBC (3.8-10.6) k/uL RBC (3.80-5.40) m/uL Hgb (11.4-16.0) gm/dL Hct (34.0-46.0) % MCV (80.0-100.0) fL MCH (25.0-35.0) pg MCHC (31.0-37.0) g/dL RDW (11.5-15.5) % Plt Count (150-450) k/uL Neutrophils % % Lymphocytes % % Monocytes % % Eosinophils % % Basophils % % Neutrophils # (1.3-7.7) k/uL Lymphocytes # (1.0-4.8) k/uL Monocytes # (0-1.0) k/uL Eosinophils # (0-0.7) k/uL Basophils # (0-0.2) k/uL Anisocytosis PT (9.0-12.0) sec INR (<1.2) APTT (22.0-30.0) sec Sodium (137-145) mmol/L Potassium (3.5-5.1) mmol/L Chloride (98-107) mmol/L Carbon Dioxide (22-30) mmol/L Anion Gap mmol/L BUN (7-17) mg/dL Creatinine (0.52-1.04) mg/dL Est GFR (MDRD) Af Amer (>60 ml/min/1.73 sqM) Est GFR (MDRD) Non-Af (>60 ml/min/1.73 sqM) Glucose (74-99) mg/dL Plasma Lactic Acid Gokul 1.4 (0.7-2.0) mmol/L Calcium (8.4-10.2) mg/dL Total Bilirubin (0.2-1.3) mg/dL AST (14-36) U/L ALT (9-52) U/L Alkaline Phosphatase (38-126) U/L Troponin I <0.012 (0.000-0.034) ng/mL Total Protein (6.3-8.2) g/dL Albumin (3.5-5.0) g/dL Amylase (30-110) U/L Lipase (23-300) U/L Urine Color Yellow Urine Appearance Turbid H (Clear) Urine pH 6.0 (5.0-8.0) Ur Specific Clare 1.010 (1.001-1.035) Urine Protein 2+ H (Negative) Urine Glucose (UA) Negative (Negative) Urine Ketones Negative (Negative) Urine Blood Moderate H (Negative) Urine Nitrite Negative (Negative) Urine Bilirubin Negative (Negative) Urine Urobilinogen <2.0 (<2.0) mg/dL Ur Leukocyte Esterase Large H (Negative) Urine WBC >182 H (0-5) /hpf Urine WBC Clumps Many H (None) /hpf Urine Bacteria Moderate H (None) /hpf Disposition Clinical Impression: Constipation, Urinary tract infection Disposition: HOME SELF-CARE Instructions: Constipation (ED), Urinary Tract Infection in Women (ED) Prescriptions: Levofloxacin [Levaquin] 750 mg PO DAILY #10 tab Referrals: Binh Jackson MD [Primary Care Provider] - 1-2 days
== END 2017-01-17 12:20 | disposition home or self-care (01) ==
LOC: EC 03:46
DX: K59.00 Constipation, unspecified (principal); N39.0 Urinary tract infection, site not specified; I11.0 Hypertensive heart disease with heart failure; I10 Essential (primary) hypertension; K21.9 Gastro-esophageal reflux disease without esophagitis; E11.9 Type 2 diabetes mellitus without complications; J44.9 Chronic obstructive pulmonary disease, unspecified; I25.10 Atherosclerotic heart disease of native coronary artery without angina pectoris; E07.9 Disorder of thyroid, unspecified; M19.90 Unspecified osteoarthritis, unspecified site; M06.9 Rheumatoid arthritis, unspecified; F03.90 Unspecified dementia, unspecified severity, without behavioral disturbance, psychotic disturbance, mood disturbance, and anxiety; Z79.4 Long term (current) use of insulin; Z79.52 Long term (current) use of systemic steroids; Z79.82 Long term (current) use of aspirin; Z79.84 Long term (current) use of oral hypoglycemic drugs; Z79.899 Other long term (current) drug therapy; Z88.8 Allergy status to other drugs, medicaments and biological substances; Z91.048 Other nonmedicinal substance allergy status; Z90.49 Acquired absence of other specified parts of digestive tract
CPT/HCPCS: 99285; 96365; 96375 ×2; 96376; 36415; 80053; 82150; 83605; 83690; 84484; 85025; 85610; 85730; 81001; 87086; 87077; 87186; 74177; J2270; Q9967; J2405; J1956